=== PATIENT | female | born 1980 | race Caucasian/White ===

== ENCOUNTER 2017-10-22 15:04 | Inpatient (IN) | payer SELFPAY ==
[~2017-10-22] VITALS: Ht 149.9 cm; Wt 55.3 kg
[2017-10-22] MEDS ORDERED: PREN-546 PO (15:37)
[2017-10-22 15:43] VITALS: BP 123/81
[2017-10-22] MEDS ORDERED: LACTATED RINGERS 1,000 ML IV SCH (16:38)
[2017-10-22] MEDS ORDERED: MISOPROSTOL 25 MCG TAB VG PRN (16:40)
[2017-10-22 17:25] LABS: BASOPHILS # (AUTO) 0.1 K/uL (0.00-0.22); EOSINOPHILS # (AUTO) 0.1 K/uL (0-0.4); EOSINOPHILS % (AUTO) 1.2 % (0.0-4.0); HEMATOCRIT 35.1 % (36-48); HEMOGLOBIN 11.7 g/dL (12.0-16.0); LYMPHOCYTES # (AUTO) 1.9 K/uL (2.5-16.5); LYMPHOCYTES % (AUTO) 18.1 % (20.5-51.1); MEAN CORPUSCULAR HEMOGLOBIN 30 pg (27-31); MEAN CORPUSCULAR HGB CONC 33 g/dL (33-37); MEAN CORPUSCULAR VOLUME 91 fL (80-94); MONOCYTES % (AUTO) 9.4 % (1.7-9.3); NEUTROPHILS # (AUTO) 7.4 K/uL (1.8-7.7); NEUTROPHILS % (AUTO) 70.3 % (42.2-75.2); PLATELET COUNT (AUTO) 317 K/uL (140-450); RED BLOOD CELL COUNT(AUTO) 3.86 MIL/uL (4.20-5.40); RED CELL DISTRIBUTION WIDTH 13.5 % (11.6-13.7); WHITE BLOOD COUNT (AUTO) 10.5 K/uL (4.8-10.8)
[2017-10-22 17:33] LABS: APPEARANCE,URINE CLEAR (CLEAR); BILIRUBIN,URINE NEGATIVE (NEGATIVE); BLOOD, URINE NEGATIVE (NEGATIVE); COLOR,URINE YELLOW (YELLOW); LEUKOCYTE ESTERASE ,URINE NEGATIVE (NEGATIVE); NITRITE, URINE NEGATIVE (NEGATIVE); UGLUCOSE NEGATIVE (NEGATIVE)
[2017-10-22 17:34] LABS: ANION GAP 15.2 (8-16); CARBON DIOXIDE 20.6 mmol/L (21-32); CREATININE 0.7 mg/dL (0.6-1.3); POTASSIUM 3.8 mmol/L (3.5-5.1)
[2017-10-22 17:41] LABS: ALBUMIN 2.6 g/dL (3.4-5.0); TOTAL BILIRUBIN 0.2 mg/dL (0.0-1.0)
[2017-10-22] MEDS ORDERED: OXYTOCIN 20 UNITS in LACTATED RINGERS 1,000 ML IV SCH (19:34)
[2017-10-22] MEDS ORDERED: NALBUPHINE 10 MG/ML AMP IVP PRN (19:35)
[2017-10-22] MEDS ORDERED: MISOPROSTOL 25 MCG TAB ONE (20:30)
[2017-10-22] MEDS ORDERED: MISOPROSTOL 25 MCG TAB VG SCH (21:15)
[2017-10-23] MEDS ORDERED: PROMETHAZINE 25 MG/ML VIAL IVP PRN (00:45)
[2017-10-23] MEDS ORDERED: TERBUTALINE 1 MG/ML VIAL SUBQ ONE (02:21)
[2017-10-23] MEDS ORDERED: OXYTOCIN 20 UNITS/LR PREMIX 1,000 ML IV ONE (02:29)
[2017-10-23] MEDS ORDERED: LIDOCAINE MPF 1% - **ER/OR** 30 ML ONE (02:30)
[2017-10-23] MEDS ORDERED: OXYTOCIN 10 UNITS/ML VIAL ONE (02:30)
[2017-10-23] MEDS ORDERED: TERBUTALINE 1 MG/ML VIAL SUBQ STA (02:44)
[2017-10-23] MEDS ORDERED: BENZOCAINE/MENTHOL 20%-0.5% 60 GM CAN TP PRN (04:55)
[2017-10-23] MEDS ORDERED: IBUPROFEN 600 MG TAB PO PRN (04:55)
[2017-10-23] MEDS ORDERED: OXYTOCIN 20 UNITS in LACTATED RINGERS 1,000 ML IV SCH (04:55)
[2017-10-23] MEDS ORDERED: oxyCODONE/APAP 5/325 MG 1 TAB TAB PO PRN (04:55)
[2017-10-23] MEDS ORDERED: MEASLES, MUMPS, AND RUBELLA 1 VIAL SQVAC PRN (04:55)
--- NOTE | 2017-10-24 06:46 | NUR ---
PATIENT HAS BEEN SCREENED AND CATEGORIZED LOW NUTRITION RISK. PATIENT WILL BE SEEN WITHIN 7 DAYS OF ADMISSION. 10/31/17 SONY FAJARDO MS, RDN
[2017-10-24 08:52] LABS: HEMOGLOBIN 11.1 g/dL (12.0-16.0); MEAN CORPUSCULAR HEMOGLOBIN 30 pg (27-31); MEAN CORPUSCULAR HGB CONC 34 g/dL (33-37); MEAN CORPUSCULAR VOLUME 91 fL (80-94); PLATELET COUNT (AUTO) 279 K/uL (140-450); RED BLOOD CELL COUNT(AUTO) 3.64 MIL/uL (4.20-5.40); RED CELL DISTRIBUTION WIDTH 13.5 % (11.6-13.7); WHITE BLOOD COUNT (AUTO) 17.6 K/uL (4.8-10.8)
[2017-10-24 10:12] LABS: BASOPHILS % (MANUAL) 0 % (0-2); EOSINOPHILS % (MANUAL) 0 % (0-4); LYMPHOCYTES % (MANUAL) 10 % (20-46); MONOCYTES % (MANUAL) 7 % (5-12)
[2017-10-24] MEDS ORDERED: FERR325E14 PO (15:13)
[2017-10-24] MEDS ORDERED: ACET-9800 PO (15:15)
== END 2017-10-24 16:10 | disposition home or self-care (01) | DRG 775 ==
LOC: MLD 15:04 → MFCC 10-23 07:39
PROVIDERS: ADMIT Obstetrics & Gynecology; ATTEND Obstetrics & Gynecology
PROC: 10D07Z6 Extraction of Products of Conception, Vacuum, Via Natural or Artificial Opening (ICD-10-PCS; principal; 2017-10-23)
PROC: 0KQM0ZZ Repair Perineum Muscle, Open Approach (ICD-10-PCS; 2017-10-23)
DX: O76 Abnormality in fetal heart rate and rhythm complicating labor and delivery (principal); O70.1 Second degree perineal laceration during delivery; Z37.0 Single live birth; Z3A.39 39 weeks gestation of pregnancy
CPT/HCPCS: 36415; 51702; 59200; 80053; 81003; 85025; 85379; 85610; 85730; 86592; 86886; 86900; 86901; 87086; J2001; J2590; J3105; J7120

== ENCOUNTER 2018-01-16 13:42 | Inpatient (IN) | payer MEDICAID, OTHER ==
[~2018-01-16] VITALS: Ht 149.9 cm; Wt 45.4 kg
[~2018-01-16 13:42] MED LIST: ACET-9800 PO; FERR325E14 PO; PREN-546 PO
[2018-01-16 13:45] VITALS: BP 166/94
--- NOTE | 2018-01-16 13:47 | NUR ---
MARIA LUZ SOLORZANO ALS TO ER BED 06
[2018-01-16 14:44] LABS: BASOPHILS % (AUTO) 0.2 % (0.0-2.0); HEMATOCRIT 41.2 % (36-48); HEMOGLOBIN 13.7 g/dL (12.0-16.0); LYMPHOCYTES # (AUTO) 0.8 K/uL (2.5-16.5); MEAN CORPUSCULAR HEMOGLOBIN 31 pg (27-31); MEAN CORPUSCULAR HGB CONC 33 g/dL (33-37); MEAN CORPUSCULAR VOLUME 91.7 fL (80-94); MONOCYTES # (AUTO) 1.1 K/uL (0.8-1.0); MONOCYTES % (AUTO) 5.6 % (1.7-9.3); NEUTROPHILS # (AUTO) 17.9 K/uL (1.8-7.7); NEUTROPHILS % (AUTO) 90.2 % (42.2-75.2); PLATELET COUNT (AUTO) 482 K/uL (140-450); RED BLOOD CELL COUNT(AUTO) 4.49 MIL/uL (4.20-5.40); RED CELL DISTRIBUTION WIDTH 13.1 % (11.6-13.7); WHITE BLOOD COUNT (AUTO) 19.9 K/uL (4.8-10.8)
[2018-01-16 14:51] LABS: APPEARANCE,URINE HAZY (CLEAR); BILIRUBIN,URINE NEGATIVE (NEGATIVE); BLOOD, URINE 3+ (NEGATIVE); COLOR,URINE YELLOW (YELLOW); LEUKOCYTE ESTERASE ,URINE NEGATIVE (NEGATIVE); NITRITE, URINE NEGATIVE (NEGATIVE); UGLUCOSE NEGATIVE (NEGATIVE)
[2018-01-16 14:54] LABS: CARBON DIOXIDE 25.3 mmol/L (21-32); CHLORIDE 105 mmol/L (98-107); CREATININE 0.9 mg/dL (0.6-1.3); GFR ARICAN-AMERICAN 91 mL/min (>90); GLUCOSE 117 mg/dL (74-106); POTASSIUM 3.3 mmol/L (3.5-5.1); SODIUM SERUM 140 mmol/L (136-145); UREA NITROGEN, BLOOD 5 mg/dL (7-18)
[2018-01-16 14:55] LABS: BARBITURATE, URINE NEG. ng/ml (NEG <=200); BENZODIAZEPINE, URINE NEG. ng/mL (NEG <=200); CANNABINOID, URINE NEG. ng/mL (NEG <=50); COCAINE, URINE NEG. ng/mL (NEG <=300); OPIATE, URINE NEG. ng/mL (NEG <=2000); PHENCYCLIDINE SCREEN,URINE NEG. ng/mL (NEG <=25)
--- NOTE | 2018-01-16 14:55 | NUR ---
PATIENT CAME IN TO DAY BY [facility]. CIRILO IS ON A 5150 HOLD DUE TO SUICIDE IDEATION. PATIENT STATES THAT SHE HAS HISTORY OF DEPRESSION AND ANXIETY. CIRILO HAS 2 SUPERFICIAL WOUNDS ON BOTH WRISTS. [facility] STATES THAT SHE TRIED TO CUT HER WRISTS. PATIENT IS ALERT AND ORIENTED Xs 4. PATIENT ДМИТРИЙ ANY PAIN. Addendum: 01/16/18 at 1740 by [facility] PATIENT CAME IN TO DAY BY [facility]. CIRILO IS ON A 5150 HOLD DUE TO SUICIDE IDEATION. SHE WAS PUT ON A HOLD BY Mauro HUTCHINS ON 01/16/18 AT 1310 FOR DANGER TO SELF. JOSELIN'S BROTHER CALLED DUE TO PATIENT STATING SHE WANTED TO KILL HERSELF. PATIENT STATES THAT SHE HAS HISTORY OF DEPRESSION AND ANXIETY. CIRILO HAS 2 SUPERFICIAL WOUNDS ON BOTH WRISTS. [facility] STATES THAT SHE TRIED TO CUT HER WRISTS. PATIENT IS ALERT AND ORIENTED Xs 4. PATIENT ДМИТРИЙ ANY PAIN.
[2018-01-16 15:00] LABS: ALBUMIN 3.8 g/dL (3.4-5.0); ASPARTATE AMINOTRANSFERASE 27 U/L (15-37); TOTAL BILIRUBIN 0.4 mg/dL (0.0-1.0)
[2018-01-16 15:01] LABS: ACETAMINOPHEN < 0.5 ug/ml (10-30); SALICYLATE < 2.8 mg/dL (2.8-20.0)
[2018-01-16] MEDS ORDERED: POTASSIUM CHLORIDE 20% 40 MEQ/15 ML UDC PO ONE (15:05)
[2018-01-16 15:09] LABS: RBC,URINE 11-20 (MOD) /HPF (0-5); WBC,URINE 0-5 (RARE) /HPF (0-5)
[2018-01-16] MEDS ORDERED: SULFAMETH/TRIMETH DS 800/160MG 1 TAB PO ONE (15:15)
--- NOTE | 2018-01-16 15:56 | NUR ---
PT EATING LUNCH, TOLERATING WELL. PT CALM, COOPERATIVE, PLEASANT. BLANCATR SARITHA AT BEDSIDE.
--- NOTE | 2018-01-16 16:17 | NUR ---
PATIENT IS CALM AND COOPERATIVE. SHE SOFT SPOKEN AND RESPONDS WELL TO QUESTION ASKED. SHE CURRENTLY IS RESTING.
--- NOTE | 2018-01-16 16:19 | NUR ---
[facility] RECEIVED A CALL FROM CHRISTO IN THE ED, SHE HAS REFERRED PATIENT FOR ASSISTANCE WITH PLACEMENT. WE'RE JUST WAITING ON COPY OF HOLD TO ASSIST.
--- NOTE | 2018-01-16 16:25 | NUR ---
CORRESPONDENCE RECEIVED, PACKET AND COPY OF HOLD.
--- NOTE | 2018-01-16 16:38 | NUR ---
PATIENTS PULSE WAS AT 130s-140s. she expressed some anxiety and nervousness. she stated that she wished cholo could talk to her brother who is currently caring for her 3 month old son. Pt called her brother and talked for a few minutes. She expressed relief and her pulse was down to 111 after reassessment.
--- NOTE | 2018-01-16 16:41 | NUR ---
DR VALDES INFORMED OF TACCHYCARDIA WHEN PT GETS ANXIOUS, NO ORDERS RECEIVED.PT ABLE TO RELAX AFTER TALKING TOPT AND ST AT 102. WILL CONT TO MONITOR PT CLOSELY.
--- NOTE | 2018-01-16 17:28 | NUR ---
PLACEMENT PACKETS HAVE BEEN SENT TO [facility], [facility], [facility], AND [facility]. ALL BEDS ARE CURRENTLY FULL BUT WILL HOLD PACKET FOR POSSIBLE BED. [facility], AND [facility] ARE NOT TAKING WAITLIST AT THIS TIME. WE WILL CONTINUE TO SEARCH FOR PLACEMENT.
--- NOTE | 2018-01-16 18:14 | NUR ---
PATIENT SEEMED A LITTLE ANXIOUS. WENT TO BEDSIDE AND PT STARTED SHAKING. SHE STATED THAT SHE WAS IN FEAR BECAUSE SHE THOUGHT SHE HAD TO GO TO SKILLED NURSING. ANOTHER RN AND I REAASSURED HER THAT SHE WAS NOT IN TROUBLE AND THAT WE ARE HERE TO TAKE CARE OF HER. SHE EXPRESSED HER FEELINGS OF FEAR BY NOT BEING ABLE TO SEE HER DAUGHTER FOR A LONG TIME AND WANTED HER TO COME TO THE HOSPITAL. WE LET HER KNOW THAT ONCE SHE IS SETTLED IN AND OUT OF THE ER SHE COULD SEE HER. SHE AGREED AND HAD RELIEF. AFTER RECIEVING INFORMATION THAT SHE WAS NOT IN TROUBLE HER ANXIETY DECREASED AND SHE BEGAN TO STOP SHAKING AND BEGAN CALMING DOWN. SHE STATED THAT SHE WAS HUNGRY AND A MEAL WAS ORDERED. HER PULSE IS AT A 109. BP IS 114/67 AND O2 IS 96 PERCENT. SHE EXPRESSED THAT SHE NEEDED TO GET HEALTHY AND SHE WILL DO WHATEVER IT TAKES TO GET HER THERE ESPECIALLY FOR HER DAUGHTER. SHE WANTED TO FOCUS ON HERSELF AND GET THEARPY.
[2018-01-16] MEDS ORDERED: ONDANSETRON 4 MG/2 ML VIAL IVP PRN (18:45)
[2018-01-16] MEDS ORDERED: ACETAMINOPHEN 325 MG TAB PO PRN (18:45)
--- NOTE | 2018-01-16 18:57 | NUR ---
PATIENT ATE 100 PERCENT OF HER FOOD THAT WAS ORDERED FOR HER.
--- NOTE | 2018-01-16 19:27 | NUR ---
Patient will be admitted to care of [facility]. Admited to MED SURG Will go to room. Belongings list completed. Report to . Addendum: 01/16/18 at 1928 by MEDD 2 MEDICATION BOTTLES FOR ATIVAN, AND ZOLOFT WERE GIVEN TO CHARGE NURSE ACCEPTING REPORT, CLOTHES AND BELONGINGS WITH SECURITY.
[2018-01-16 19:50] VITALS: BP 118/79
--- NOTE | 2018-01-16 19:50 | NUR ---
Admitted from ER TO [facility], with chief complaint of SUICIDAL IDEATION , 37 y/o ,Female, Cooperative, AWAKE, A/OX4. RESPIRATION EVEN AND UNLABORED, ABLE TO HAVE BM EVERYDAY BUT WITH A LITTLE BURNING SENSATION WHEN SHE VOIDS. ENCOURAGED TO DRINK MORE WATER. VERBALIZED HAVING 3 WEEKS OF MENSTRUATION BUT NOT HEAVY, DESCRIBED MORE THAN SPOTTING. NOTED TINY LACERATION IN THE RIGHT WRIST, PER PATIENT WHEN SHE USE A NEEDLE AND SCRATCH ON THE LEFT WRIST, USING A SCISSOR TRYING TO CUT WRISTS, ALL ESPINO DRY AND INTACT. CLAIMED THIS HAPPENED WHEN SHE LOST CONTROL OF HERSELF BUT NOT HEARING VOICES TO DO IT. NO SUICIDAL THOUGHTS AT THIS TIME. DENIES PAIN 0/10. oriented to call light, bed, phone,television, bathroom, smoking policy, visiting hours, procedures, ID bracelet on. Belongings list checked.
--- NOTE | 2018-01-16 19:55 | NUR ---
Patient's Plan of Care was discussed and reviewed with SONIA: MARCI
--- NOTE | 2018-01-16 20:30 | NUR ---
REFUSED IV LINE INSERTION.
[2018-01-16] MEDS ORDERED: ZOLPIDEM 10 MG TAB PO PRN (21:20)
--- NOTE | 2018-01-16 21:30 | NUR ---
AMBULATED TO BR TO VOID, LOOK AT HERSELF IN THE MIRROR FOR A FEW MINUTES AND THEN WENT BACK TO BED.
--- NOTE | 2018-01-16 23:00 | NUR ---
STILL AWAKE, READING THE BIBLE IN BED.
--- NOTE | 2018-01-16 23:40 | NUR ---
UNABLE TO SLEEP, MEDICATED WITH AMBIEN ORDERED.
[2018-01-17] VITALS: BP 108/69
--- NOTE | 2018-01-17 00:30 | NUR ---
SLEEPING COMFORTABLY IN BED.
--- NOTE | 2018-01-17 03:07 | NUR ---
Made several calls for placement , but at this time there are no vacancy, will continue to try to place pt.
[2018-01-17 04:00] VITALS: BP 110/65
--- NOTE | 2018-01-17 04:00 | NUR ---
STILL SLEEPING COMFORTABLY .
--- NOTE | 2018-01-17 06:00 | NUR ---
NO SUICIDAL ATTEMPT NOTED DURING SHIFT. NEW 1:1 SITTER AT THE DOOR TO MONITOR PATIENT.
--- NOTE | 2018-01-17 06:18 | NUR ---
ABLE TO SLEEP WELL. WOKE UP FOR FEW MINUTES AND THEN WENT BACK TO SLEEP AGAIN.
--- NOTE | 2018-01-17 06:27 | NUR ---
PONY ROLL FINISHER CAME AND DRAW AM LABS. COOPERATIVE.
--- NOTE | 2018-01-17 07:15 | NUR ---
ENDORSED TO AM NURSE FOR CONTINUITY OF CARE.
--- NOTE | 2018-01-17 07:16 | NUR ---
RECEIVED BEDSIDE REPORT FROM FISCAL ECONOMIST NURSE. PATIENT IS AWAJKE, ALERT AND ORIENTEDX4. NO SIGNS OF DISTRESS ON ROOM AIR. NO IV SITE, PATIENT REFUSED. SHE HAS SCRATCHES ON BOTH WRISTS, SHE TRIED TO CUT HER WRISTS D/T POST DEPRESSION . SHE IS AMBULATORY. GAIT IS STEADY. BED IN LOW POSITION. 1:1 SITTER AT BEDSIDE. WILL CONTINUE TO MONITOR THE PATIENT.
[2018-01-17 08:00] VITALS: BP 117/77
[2018-01-17] MEDS: ENOXAPARIN 40 MG/0.4 ML SYR SUBQ SCH (09:23)
--- NOTE | 2018-01-17 09:33 | NUR ---
ADMINISTERED LOVENOX ON L ARM. PATIENT TOLERATED WELL. BED IN LOW POSITION. WILL CONTINUE TO MONITOR THE PATIENT. 1:1 SITTER AT BEDSIDE.
[2018-01-17 11:32] LABS: ANION GAP 12.6 (8-16); CARBON DIOXIDE 25.3 mmol/L (21-32); CREATININE 0.7 mg/dL (0.6-1.3); POTASSIUM 3.9 mmol/L (3.5-5.1)
[2018-01-17 11:59] LABS: BASOPHILS # (AUTO) 0.1 K/uL (0.00-0.22); BASOPHILS % (AUTO) 0.4 % (0.0-2.0); EOSINOPHILS % (AUTO) 0.3 % (0.0-4.0); HEMOGLOBIN 14.4 g/dL (12.0-16.0); LYMPHOCYTES # (AUTO) 2.4 K/uL (2.5-16.5); LYMPHOCYTES % (AUTO) 18.2 % (20.5-51.1); MEAN CORPUSCULAR HEMOGLOBIN 31 pg (27-31); MEAN CORPUSCULAR HGB CONC 33 g/dL (33-37); MEAN CORPUSCULAR VOLUME 92.3 fL (80-94); MONOCYTES % (AUTO) 7.5 % (1.7-9.3); NEUTROPHILS # (AUTO) 9.8 K/uL (1.8-7.7); NEUTROPHILS % (AUTO) 73.6 % (42.2-75.2); PLATELET COUNT (AUTO) 503 K/uL (140-450); RED BLOOD CELL COUNT(AUTO) 4.66 MIL/uL (4.20-5.40); RED CELL DISTRIBUTION WIDTH 13.2 % (11.6-13.7); WHITE BLOOD COUNT (AUTO) 13.3 K/uL (4.8-10.8)
--- NOTE | 2018-01-17 11:59 | NUR ---
PATIENT SITTING IN BED. NO SIGNS OF DISTRESS. BED IN LOW POSITION. 1:1 SITTER AT BEDSIDE.
--- NOTE | 2018-01-17 12:14 | NUR ---
PATIENT IS ANXIOUS. CHECKED VITALS, VITALS ARE WITHIN NORMAL LIMITS. PATIENT SPOKE TO HER BROTHER AND SHE IS MORE RELAXED. SHE JUST WANTS TO SEE HER BABY. FAMILY WILL VISIT IN ABOUT 2HRS. BED IN LOW POSITION. WILL CONTINUE TO MONITOR THE PATIENT.
--- NOTE | 2018-01-17 13:59 | NUR ---
PATIENT IS FEELING BETTER. A LITTLE LESS ANXIOUS. SHE DID NOT WANT ME TO ASK THE DOCTOR FOR ANXIETY MEDICATIONS. PATIENT ALMOST DONE EATING HER LUNCH. BED IN LOW POSITION. 1:1 SITTER AT BEDSIDE.
--- NOTE | 2018-01-17 14:33 | NUR ---
CONTACTED [facility], [facility], [facility], [facility]. THERE ARE CURRENTLY NO BEDS AVAILABLE AT THIS TIME. PLACEMENT PACKETS WILL BE SENT TO [facility] AND [facility].
[2018-01-17 15:20] VITALS: BP 128/71
[2018-01-17] MEDS ORDERED: ALPRAZolam 0.5 MG TAB PO PRN (15:20)
--- NOTE | 2018-01-17 15:37 | NUR ---
FAMILY AT BEDSIDE. PATIENT IS ANXIOUS. ADMINISTERED XANAX ORDERED. BED IN LOW POSITION 1:1 SITTER AT BEDSIDE. WILL CONTINUE TO MONITOR THE PATIENT.
[2018-01-17 16:00] VITALS: BP 109/76
--- NOTE | 2018-01-17 17:00 | NUR ---
PATIENT WITH FAMILY. NO SIGNS OF DISTRESS. 1:1 SITTER AT BEDSIDE. WILL CONTINUE TO MONITOR PATIENT.
--- NOTE | 2018-01-17 17:12 | NUR ---
FAXED INITIAL REVIEW TO [facility] [phone] PHONE RUDOLPH [phone]
--- NOTE | 2018-01-17 18:00 | NUR ---
TOLU CONSULT AT BEDSIDE.
--- NOTE | 2018-01-17 19:30 | NUR ---
GAVE BEDSIDE REPORT TO LORRY WEIGHER NURSE. PATIENT IS IN STABLE CONDITION.
--- NOTE | 2018-01-17 19:30 | NUR ---
RECEIVED PATIENT ROAMING AROUND THE ROOM WITH CONSTANT WATCH OF SITTER. PATIENT IS ON 1:1 SITTER FOR SUICIDAL IDEATION. SUICIDAL PRECAUTION IMPLEMENTED. BED IN LOW POSITION. WILL CONTINUE TO MONITOR.
--- NOTE | 2018-01-17 21:40 | NUR ---
SEEN PATIENT SITTING ON TOP BED AWAKE DOING ROCKING MOTION. ENCOURAGE TO VERBALIZED FEELING. REALITY ORIENTATION PROVIDED. SITTER IN CONSTANT WATCH BY THE DOOR FOR SAFETY. SUICIDAL PRECAUTION PROVIDED. WILL CONTINUE TO MONITOR.
--- NOTE | 2018-01-18 02:05 | NUR ---
SEEN PATIENT AWAKE ON SITTING ON BED. PATIENT WAS QUIET WITH NO SIGN OF AGGRESSION. PATIENT SITTER ON CONSTANT WATCH FOR SAFETY. WILL CONTINUE TO MONITOR.
--- NOTE | 2018-01-18 02:30 | NUR ---
RECEIVED PT FROM [facility] FOR CONTINUITY OF CARE. PT AWAKE SITTING IN BED.
[2018-01-18 04:00] VITALS: BP 127/87
--- NOTE | 2018-01-18 04:00 | NUR ---
V/S TAKEN NO COMPLAINTS. DOES NOT TALK, WIDE AWAKE. HELP HER TO LAY DOWN IN BED.
--- NOTE | 2018-01-18 05:54 | NUR ---
Many calls were made , trying to place pt , BUt there were no vacancy , will endorsed to oncoming shift to continue to find placement for pt.
--- NOTE | 2018-01-18 06:00 | NUR ---
STILL AWAKE, DOES NOT WANT TO LAY DOWN.
--- NOTE | 2018-01-18 07:00 | NUR ---
RECEIVED BEDSIDE REPORT FROM SENIOR INFORMATION SECURITY ANALYST NURSE. PATIENT IS AWAKE, SHE IS ALERT AND ORIENTEDX4. NO SIGNS OF DISTRESS ON ROOM AIR. SHE HAS SOME ANXIETY. SKIN HAS LITTLE CUTS ON BILATERAL WRISTS. NO IV IN PLACE, PATIENT REFUSED. BED IN LOW POSITION. 1:1 SITTER AT BEDSIDE.
[2018-01-18 08:00] VITALS: BP 143/96
[2018-01-18] MEDS: ALPRAZolam 0.5 MG TAB PO PRN ×2 (08:09→20:58)
[2018-01-18] MEDS: ENOXAPARIN 40 MG/0.4 ML SYR SUBQ SCH (08:10)
--- NOTE | 2018-01-18 08:37 | NUR ---
ADMINISTERED MEDS. PATIENT TOLERATED WELL. ADMINISTERED PRN XANAX PATIENT IS REALLY ANXIOUS TALKING ABOUT HOW SHE NEEDS TO BE WITH HER BABY AND SHE KEEPS WALKING BACK AND FOURTH AROUND THE ROOM, AND ROCKING HER BODY. KEEPS REPEATING "I NEED TO BE WITH MY BABY" BED IN LOW POSITION. 1:1 SITTER AT BEDSIDE. WILL CONTINUE TO MONITOR THE PATIENT.
[2018-01-18] MEDS ORDERED: QUEtiapine FUMARATE 25 MG TAB PO SCH (09:30)
[2018-01-18 10:30] LABS: BASOPHILS # (AUTO) 0.1 K/uL (0.00-0.22); BASOPHILS % (AUTO) 0.4 % (0.0-2.0); EOSINOPHILS % (AUTO) 0.2 % (0.0-4.0); HEMATOCRIT 43.4 % (36-48); HEMOGLOBIN 14.4 g/dL (12.0-16.0); LYMPHOCYTES # (AUTO) 1.7 K/uL (2.5-16.5); LYMPHOCYTES % (AUTO) 10.8 % (20.5-51.1); MEAN CORPUSCULAR HEMOGLOBIN 31 pg (27-31); MEAN CORPUSCULAR HGB CONC 33 g/dL (33-37); MEAN CORPUSCULAR VOLUME 92.2 fL (80-94); MONOCYTES # (AUTO) 1.2 K/uL (0.8-1.0); MONOCYTES % (AUTO) 7.4 % (1.7-9.3); NEUTROPHILS # (AUTO) 12.6 K/uL (1.8-7.7); NEUTROPHILS % (AUTO) 81.2 % (42.2-75.2); PLATELET COUNT (AUTO) 487 K/uL (140-450); RED BLOOD CELL COUNT(AUTO) 4.71 MIL/uL (4.20-5.40); WHITE BLOOD COUNT (AUTO) 15.5 K/uL (4.8-10.8)
[2018-01-18] MEDS ORDERED: LORA-476 PO (10:46)
[2018-01-18] MEDS ORDERED: SERT25TA PO (10:46)
--- NOTE | 2018-01-18 10:50 | NUR ---
Chart faxed to [facility] for review.
[2018-01-18 10:53] LABS: CARBON DIOXIDE 24.5 mmol/L (21-32); CREATININE 0.9 mg/dL (0.6-1.3); POTASSIUM 3.5 mmol/L (3.5-5.1)
--- NOTE | 2018-01-18 11:02 | NUR ---
ADMINISTERED MEDS. PATIENT TOLERATED WELL. 1:1 SITTER AT BEDSIDE.
--- NOTE | 2018-01-18 13:00 | NUR ---
PATIENT WALKING AROUND BEDSIDE. NO COMPLAINTS AT THIS TIME. JUST STILL WISHING SHE CAN SEE HER BABY. NO SIGNS OF DISTRESS ON ROOM AIR. 1:1 SITTER AT BEDSIDE.
--- NOTE | 2018-01-18 15:00 | NUR ---
PATIENT CURRENTLY ASKING TO SEE HER DAUGHTER. EXPLAINED TO HER SHE HAS TO GET BETTER FIRST. SHE WANTS TO SEE HER DAUGHTER AND GIVE HER "KISSES AND HUGS". SHE ATTEMPTED TO WALK OUT THE ROOM BUT I HAD TO EXPLAIN TO HER THAT SHE IS NOT ABLE TO LEAVE DO TO THE 5150. WILL CONTINUE TO MONITOR THE PATIENT.
--- NOTE | 2018-01-18 15:06 | NUR ---
Still no beds at this time. Will continue to follow up with faxed facilities.
--- NOTE | 2018-01-18 15:29 | NUR ---
01/18/18 RD INITIAL ASSESSMENT COMPLETED PLEASE REFER TO NUTRITION ASSESSMENT UNDER CARE ACTIVITY FOR ESTIMATED NUTRITIONAL NEEDS. 1. CONTINUE REGULAR DIET TOLERATED 2. RD TO FOLLOW-UP 5-7 DAYS, LOW RISK CARLOS YAO RD
[2018-01-18 16:00] VITALS: BP 109/75
--- NOTE | 2018-01-18 18:06 | NUR ---
PATIENT IS EATING. FAMILY AT BEDSIDE. NO SIGNS OF DISTRESS AT THIS TIME. WILL CONTINUE TO MONITOR THE PATIENT. 1:1 SITTER AT BEDSIDE
--- NOTE | 2018-01-18 19:10 | NUR ---
GAVE BEDSIDE REPORT TO BUSINESS COORDINATOR NURSE. PATIENT IS IN STABLE CONDITION.
--- NOTE | 2018-01-18 19:11 | NUR ---
PATIENT REPORT RECEIVED FROM MORNING NURSE AT BEDSIDE. PATIENT IS AWAKE AND ALERT. NO SIGNS AND SYMPTOMS OF DISTRESS NOTED. PATIENT'S FAMILY AT BEDSIDE. NO IV SITE NOTED DUE TO PATIENT'S REFUSAL. SAFETY PRECAUTIONS IN PLACE. 1:1 SITTER PRESENT. WILL CONTINUE TO MONITOR
[2018-01-18] MEDS: QUEtiapine FUMARATE 25 MG TAB PO SCH (20:58)
--- NOTE | 2018-01-18 21:00 | NUR ---
MEDICATION EDUCATION GIVEN. PATIENT VERBALIZED UNDERSTANDING. MEDICATION EDUCATION GIVEN ORDERED. PATIENT TOLERATED WELL. WILL CONTINUE TO MONITOR
--- NOTE | 2018-01-18 22:00 | NUR ---
PATIENT SEEN SITTING IN CHAIR NEXT TO 1:1 SITTER, TALKING TO THEM. NO SIGNS AND SYMPTOMS OF DISTRESS NOTED. WILL CONTINUE TO MONITOR
--- NOTE | 2018-01-19 00:30 | NUR ---
CHECKED ON PATIENT. PATIENT IS ASLEEP. NO SIGNS AND SYMPTOMS OF DISTRESS NOTED. 1:1 SITTER PRESENT. WILL CONTINUE TO MONITOR
--- NOTE | 2018-01-19 02:00 | NUR ---
PATIENT IS AWAKE SITTING QUIETLY IN BED. SAFETY PRECAUTIONS IN PLACE. 1:1 SITTER PRESENT. WILL CONTINUE TO MONITOR
--- NOTE | 2018-01-19 02:15 | NUR ---
RECEIVED CALL FROM BEHAVIORAL CENTER AGENT CLEMENT. CLEMENT STATED THAT HE STILL HAS NOT BEEN ABLE TO FIND AN AVAILABLE BED.
[2018-01-19 03:30] VITALS: BP 125/86
--- NOTE | 2018-01-19 03:50 | NUR ---
CHECKED ON PATIENT. PATIENT SITTING QUIETLY IN BED. NO SIGNS AND SYMPTOMS OF DISTRESS NOTED. 1:1 SITTER PRESENT. SAFETY PRECAUTIONS IN PLACE. WILL CONTINUE TO MONITOR
[2018-01-19] MEDS ORDERED: LORazepam 1 MG TAB PO PRN (06:45)
--- NOTE | 2018-01-19 06:45 | NUR ---
PATIENT AGITATED. GOT OUT OF ROOM. 1:1 SITTER FOLLOWED PATIENT. SECURITY CALLED. NOTIFIED DR. ADAMSON, ORDERS RECEIVED.
--- NOTE | 2018-01-19 07:00 | NUR ---
CALLED PATIENT'S BROTHER, JUNIE ON THE PHONE. HAD PATIENT SPEAK TO BROTHER TO HELP CALM PATIENT DOWN. SECURITY PRESENT WITH PATIENT IN ROOM
[2018-01-19] MEDS ORDERED: LORazepam 2 MG/ML VIAL IM/IVP PRN (07:05)
--- NOTE | 2018-01-19 07:05 | NUR ---
LACEY ORDER OVERRIDED IN PYXIS. Addendum: 01/19/18 at 0801 by Pari Pimentel RN COSIGNED BY ELZA RING
--- NOTE | 2018-01-19 07:05 | NUR ---
IV INSERTED BY AD BLAKE. LEFT FOREARM, 22 GAUGE. SECURITY PRESENT WITH PATIENT
[2018-01-19] MEDS ORDERED: LORazepam 2 MG/ML VIAL ONE (07:11)
--- NOTE | 2018-01-19 07:15 | NUR ---
PATIENT REPORT GIVEN TO MORNING NURSE AT BEDSIDE. PATIENT IS IN STABLE CONDITION Addendum: 01/19/18 at 0745 by Pari Pimentel RN 1:1 ASHLY PRESENT WITH PATIENT
--- NOTE | 2018-01-19 07:30 | NUR ---
RECEIVED PT REPORT FROM SURFACE LAY OUT TECHNICIAN NURSE AT BEDSIDE. PATIENT IS SLEEPING IN BED. NO SIGNS AND SYMPTOMS OF DISTRESS NOTED. IV NOTED TO THE RIGHT FA, 22G. PATENT AND INTACT. SAFETY PRECAUTIONS IN PLACE. 1:1 SITTER AT BEDSIDE. WILL CONTINUE TO MONITOR
[2018-01-19 08:00] VITALS: BP 106/76
[2018-01-19] MEDS: QUEtiapine FUMARATE 25 MG TAB PO SCH (09:50)
[2018-01-19] MEDS: ENOXAPARIN 40 MG/0.4 ML SYR SUBQ SCH (09:54)
[2018-01-19] MEDS ORDERED: SERT50TA PO (10:11)
[2018-01-19] MEDS ORDERED: LEVO500T2 PO (10:18)
[2018-01-19] MEDS ORDERED: SERTRALINE 50 MG TAB PO SCH (11:00)
--- NOTE | 2018-01-19 11:32 | NUR ---
CALLED PT'S BROTHER. MADE HIM AWARE OF DISCHARGE ORDER FROM MD. HE SAID HE WILL COME TO SENIOR LEAD DEVELOPER PT AFTER LUNCH AROUND 1PM.
--- NOTE | 2018-01-19 12:20 | NUR ---
PT EATING LUNCH, NO S/S OF ACUTE DISTRESS NOTED.
--- NOTE | 2018-01-19 14:15 | NUR ---
PT DISCHARGED PER MD ORDER. OK WITH DR TOVAR. MADE PT AND HER BROTHER AWARE THAT PT NEEDS TO FOLLOW UP WITH PCP AND DR TOVAR PSYCHIATRIST WITHIN 1 WK OF DC. PT WAS PROVIDED WITH DR TOVAR'S BUSINESS CARD AND PHONE #. DISCHARGE AND MEDICATION TEACHING PROVIDED. PT VERBALIZED UNDERSTANDING. IV DC'D, TIP INTACT, PRESSURE APPLIED. RX AND MEDICATION STORED IN PHARM WAS GIVEN TO PT. PT LEFT WITH ALL HER BELONGING AND IN STABLE CONDITION.
--- NOTE | 2018-01-19 14:29 | NUR ---
[id number] CLINICAL DOCUMENTATION AND DISCHARGE SUMMARY FAXED TO [facility] [phone]
[2018-01-20] MEDS ORDERED: SERTRALINE 50 MG TAB PO SCH (09:00)
== END 2018-01-19 14:15 | disposition home or self-care (01) | DRG 463 ==
LOC: MED 13:42 → MTU 18:46 → OBSVTOIN 01-17 10:49 → MTU 01-17 20:30
PROVIDERS: ADMIT Hospitalist; ATTEND Hospitalist
DX: N39.0 Urinary tract infection, site not specified (principal); R45.851 Suicidal ideations; E87.6 Hypokalemia; F53 Mental and behavioral disorders associated with the puerperium, not elsewhere classified; F41.9 Anxiety disorder, unspecified; Z78.1 Physical restraint status; Z88.8 Allergy status to other drugs, medicaments and biological substances; Z88.4 Allergy status to anesthetic agent; Z79.899 Other long term (current) drug therapy; Z28.21 Immunization not carried out because of patient refusal
CPT/HCPCS: 99285; G0378; 36415; 71045; 80048; 80053; 80305; 81001; 81025; 85025; 87081; 87086; G0480; G0482; J1650; J2060; Q0092